=== PATIENT | female | born 1995 | race Caucasian/White ===

== ENCOUNTER 2025-07-29 12:28 | Outpatient (CLI) | payer MEDICAID, SELFPAY ==
--- NOTE | 2025-07-29 12:15 | RT.EKG_ITS ---
APPROVED REPORT Exam: Resting ECG Reason for Exam: Presyncope Patient Location: O HR:62 bpm ECG Measurements Heart Rate 62 AXIS NH 142 P 55 QRSd 89 QRS 86 QT 434 T 64 QTc 441 Conclusion Sinus rhythm...normal P axis, V-rate 50- 99 Normal Electrocardiogram
== END 2025-07-29 12:29 | disposition home or self-care (01) ==
LOC: DI.CM 12:29
PROVIDERS: Visit Provider Nurse Practitioner Family
DX: R07.89 Other chest pain (principal)
CPT/HCPCS: 93010

== ENCOUNTER 2025-07-29 13:03 | Outpatient (REF) | payer MEDICAID, SELFPAY ==
[2025-07-29 15:57] LABS: HCT 40.4 % (36.0-46.0); HGB 13.0 g/dL (11.2-15.7); MCH 29.0 pg (27.0-33.0); MCHC 32.2 % (32.0-36.0); MCV 90 fL (80-95); MPV 9.9 fL (8.0-11.0); Platelet Count 248 10^3/uL (130-400); RBC 4.49 10^6/uL (3.93-5.22); RDW 13.0 % (11.7-14.6); RDW-SD 42.8 fL; WBC 6.82 10^3/uL (4.4-10.8)
[2025-07-29 16:13] LABS: ALT 27 U/L (14-59); AST 20 U/L (15-37); Albumin 4.0 g/dL (3.4-5.0); Alkaline Phosphatase 53 U/L (46-116); Anion Gap 7.5 mmol/L (3-11); BUN 10 mg/dL (7-18); Bilirubin, Total 0.5 mg/dL (0.2-1.0); CO2 31.5 mmol/L (21.0-32.0); Calcium 9.1 mg/dL (8.5-10.1); Chloride 104 mmol/L (98-107); Glucose 76 mg/dL (74-106); Potassium 3.8 mmol/L (3.5-5.1); Sodium 143 mmol/L (136-145); Total Protein 7.6 g/dL (6.4-8.2)
== END 2025-07-29 13:04 | disposition home or self-care (01) ==
LOC: LBN 13:03
PROVIDERS: Visit Provider Nurse Practitioner Family
DX: R55 Syncope and collapse (principal)
CPT/HCPCS: 80053; 85027

== ENCOUNTER → 2025-08-05 00:25 | Outpatient (CLI) | payer MEDICAID, SELFPAY ==
--- NOTE | 2025-08-05 06:45 | DI.US_ITS ---
Exam(s) US BREAST LT COMPLETE MG MAMMO DIAGNOSTIC BI EXAM: MG MAMMO DIAGNOSTIC BI AND COMPLETE LEFT BREAST ULTRASOUND CLINICAL HISTORY: eval pathology N63.20 MASS LT BREAST. TECHNIQUE: BILATERAL CC AND MLO mammographic images were obtained with 3D tomosynthesis technique and utilizing computer aided detection (CAD). ADDITIONAL SPOT COMPRESSION VIEWS LEFT BREAST were performed COMPLETE LEFT BREAST ULTRASOUND was performed, including all 4 quadrants as well as the axillary region. COMPARISON: This is a baseline mammogram on a 29-year-old female patient who apparently feels a lump in the medial aspect of her left breast times 2 months at approximately 10 o'clock position which she describes as the size of ???almost a ping-pong ball???.. She has previously breastfed but never had mastitis. She denies breast tenderness and denies nipple discharge. FINDINGS: BILATERAL DIAGNOSTIC MAMMOGRAM: Fibroglandular tissue pattern is heterogeneously dense. There are no CAD designations No significant radiograph findings in the right breast. In the left breast there is a benign-appearing lymph node in the upper quadrant. In addition, there is an area of asymmetric tissue in the left axillary tail region measuring approximately 3 by 2 cm which has benign appearance most probably representing asymmetric fibroglandular tissue; less likely a hamartoma/fibroadenolipoma (there are no ultrasound findings at this level/see below). There are no obvious significant focal mammographic findings in the medial aspect of the left breast which is her area of clinical concern. There are no malignant-appearing microcalcification groups in either breast No significant architectural distortion nor skin thickening-retraction. COMPLETE LEFT BREAST ULTRASOUND: At 12 o'clock position there is a 4 x 3 mm benign microcyst. At 12 o'clock position there is also a 6 x 3 millimeter benign microcyst. At the peripheral 2 o'clock position there is a benign intramammary lymph node measuring 7 x 3 mm, corresponding to the mammographically visible lymph node at this location. Also at the 2 o'clock position is a 7 x 4 mm septated microcyst. At the 3 o'clock position there is a 4 millimeter benign microcyst. At the 3 o'clock position there is also a 6 x 4 mm lumbar region microcysts. At the 4 o'clock position there is a conglomeration microcysts measuring 9 x 4 mm, located 2 cm from the nipple. At the 8 o'clock position there is a benign septated microcyst measuring 3 x 2 mm. In the area of clinical concern in the upper inner quadrant (9-11 o'clock) there are no significant focal ultrasound findings. There is some dense tissue but no evidence of solid or significant cystic lesions. Scanning of the left axilla is negative for significant adenopathy. IMPRESSION: 1. No mammographic evidence of malignancy in either breast. 2. Multiple benign-appearing ultrasound findings as described individually above in the left breast. However, there is no significant focal finding in her area of clinical concern which is in the upper inner quadrant of the left breast. Appropriate follow-up, as discussed by myself with the patient and her today, is referral to breast surgeon for examination and to determine if further imaging such as MRI is warranted. The patient was informed of the findings and follow-up by myself recommendations prior to leaving the department today. BI-RADS Category 0 - Incomplete: Need additional imaging evaluation, specifically referral to breast surgeon for examination. Breast Density - Category C - The breast are heterogeneously dense, which may obscure small masses. Breast density Category C or D implies that the patient has dense breast tissue. Dense breast tissue can make it harder to find cancer on a mammogram. Dense breast tissue is also associated with an increased risk of breast cancer. This information about the result of the mammogram report was provided to the patient to raise their awareness. Use this report when you speak with the patient about their risks for breast cancer, which includes their family history. At that time, you may recommend additional screening tests (Ultrasound or MRI) as these tests may add significant information. A negative radiographic report should not delay biopsy if a dominant or clinically suspicious mass is present. Up to ten percent of cancers are not identified on mammography. A negative report may reinforce clinical impression. Adenosis and dense breasts may obscure an underlying neoplasm. False positive reports average 6 to 10%. Patient will receive a letter notifying them of these results.
== END ==
LOC: DI 00:25
PROVIDERS: Visit Provider Nurse Practitioner Family
DX: R92.313 Mammographic fatty tissue density, bilateral breasts (principal); R92.0 Mammographic microcalcification found on diagnostic imaging of breast; Z12.31 Encounter for screening mammogram for malignant neoplasm of breast
CPT/HCPCS: 76642; 77062; 77066; G0279